=== PATIENT | male | born 1985 | race Caucasian/White ===

== ENCOUNTER 2017-10-30 08:48 | Emergency (ER) | payer BC, SELFPAY ==
[2017-10-30 09:03] VITALS: BP 136/94; PULSE 93; RESP 20; TEMP 36.8; O2SAT 99; BMI 25.1
--- NOTE | 2017-10-30 09:10 | HMH.EDUTC ---
[facility] [place]ression: Upper respiratory infection Qualifiers: URI type: unspecified URI Qualified Code(s): J06.9 - Acute upper respiratory infection, unspecified Disposition: Home, Self-Care Condition on Discharge: Good Instructions: Cough, DI for Cough -- Adult, Sore Throat, DI for Nasal Congestion Additional Instructions: * Monitor Temp. Tylenol and/or Ibuprofen as needed. ER if fever is no less than 101 despite alternating Tylenol and Ibuprofen * Encourage fluids, water, Gatorade, powerade, pedialyte if /toddler/or child * Warm salt water gargles for throat irritation *Warm fluids *Sore throat lozenges *Sleep elevated *humidifier or vaporizer Lots of rest Increase fluids, water, Gatorade, powerade *Flonase 2 sprays each nostril daily but may take 2-3 days to notice improvement with it Follow up IMMEDIATELY for new or worsening of symptoms OR no noticeable improvement over the next 48-72 hours. 911 immediately for any life threatening symptoms such as chest pain or difficulty breathing Prescriptions: Promethazine/Dextromethorphan [Promethazine-Dm Syrup] 5 ml PO Q4HP PRN #250 ml MDD 30ML/DAY PRN Reason: Cough Amoxicillin/Potassium Clav [Augmentin 875-125 Tablet] 1 tab PO Q12H #14 tab Fluticasone Propionate [Flonase 50mcg nasal spray 16gm] 2 spr NS DAILY #1 bottle Guaifenesin/Dextromethorphan [Mucinex Dm ER 1,200-60 mg Tab] 1 each PO Q12H #20 tab.er.12h Time of Disposition: 09:25 Medical Decision Making - Medical Records Medical records reviewed: Yes: I reviewed the patient's medical records. Vital Signs: 10/30/17 09:03 Temperature 98.2 F Temperature Source Temporal Artery Scan Pulse Rate [Right] 93 H Respiratory Rate 20 Blood Pressure [Right Arm] 136/94 Blood Pressure Mean [Right Arm] 108 Blood Pressure Source [Right Arm] Automatic Cuff Blood Pressure Position [Right Arm] Sitting 02 Sat by Pulse Oximetry 99 Oxygen Delivery Method Room Air - Frank Inquiry Pt receiving controlled substance: No Frank was queried for this patient: No - Reevaluation(s) Reevaluation #1: Patient denies allergy to medication [facility] [place] - General Stated complaint: drainage sore throat chest congestion Mode of Arrival: Ambulatory Source of Information: Patient Limitations: No Limitations Description of Symptoms (Recalled from Triage Doc. by RN): cough, congestion, x2 days HEENT Symptoms (Recalled from RN notes): Yes Resp Symptoms (Recalled from RN notes): No Skin Symptoms (Recalled from RN notes): No MS Symptoms (Recalled from RN notes): No Functional Status (Recalled from RN notes): N - History of Present Illness Provider Complaint: Patient state that he had sinus pain and congestion a couple of weeks ago that got better States that for the the last couple of days he has been having a sinus headache, cough, drainage and sore throat State that he has tried several over the counter medications but nothing has worked - Related Data Previous Rx's Medication Instructions Recorded Amoxicillin/Potassium Clav 1 tab PO Q12H #14 tab 10/30/17 [Augmentin 875-125 Tablet] Fluticasone Propionate [Flonase 2 spr NS DAILY #1 bottle 10/30/17 50mcg nasal spray 16gm] Guaifenesin/Dextromethorphan 1 each PO Q12H #20 tab.er.12h 10/30/17 [Mucinex Dm ER 1,200-60 mg Tab] Promethazine/Dextromethorphan 5 ml PO Q4HP PRN #250 ml MDD 10/30/17 [Promethazine-Dm Syrup] 30ML/DAY Allergies Allergy/AdvReac Type Severity Reaction Status Date / Time No Known Allergies Allergy Verified 10/30/17 09:07 - Worker's Comp Is this a Worker's Comp case?: No [facility] History I have reviewed the patient's past medical history: Yes - *Social History Smoking Status: Current every day smoker Tobacco Type: cigarettes Alcohol Intake: never - Psychiatric History Expresses thoughts of harming self/others: None Suicide Plan Description: No Plan ROS Obtained: Yes All systems reviewed & no additional complaints - EN
--- NOTE | 2017-10-30 09:13 | ED_ITS ---
[facility] [place] Disposition Clinical Impression: Upper respiratory infection Qualifiers: URI type: unspecified URI Qualified Code(s): J06.9 - Acute upper respiratory infection, unspecified Disposition: Home, Self-Care Condition on Discharge: Good Instructions: Cough, DI for Cough -- Adult, Sore Throat, DI for Nasal Congestion Additional Instructions: * Monitor Temp. Tylenol and/or Ibuprofen as needed. ER if fever is no less than 101 despite alternating Tylenol and Ibuprofen * Encourage fluids, water, Gatorade, powerade, pedialyte if /toddler/or child * Warm salt water gargles for throat irritation *Warm fluids *Sore throat lozenges *Sleep elevated *humidifier or vaporizer Lots of rest Increase fluids, water, Gatorade, powerade *Flonase 2 sprays each nostril daily but may take 2-3 days to notice improvement with it Follow up IMMEDIATELY for new or worsening of symptoms OR no noticeable improvement over the next 48-72 hours. 911 immediately for any life threatening symptoms such as chest pain or difficulty breathing Prescriptions: Promethazine/Dextromethorphan [Promethazine-Dm Syrup] 5 ml PO Q4HP PRN #250 ml MDD 30ML/DAY PRN Reason: Cough Amoxicillin/Potassium Clav [Augmentin 875-125 Tablet] 1 tab PO Q12H #14 tab Fluticasone Propionate [Flonase 50mcg nasal spray 16gm] 2 spr NS DAILY #1 bottle Guaifenesin/Dextromethorphan [Mucinex Dm ER 1,200-60 mg Tab] 1 each PO Q12H #20 tab.er.12h Time of Disposition: 09:25 Medical Decision Making - Medical Records Medical records reviewed: Yes: I reviewed the patient's medical records. Vital Signs: 10/30/17 09:03 Temperature 98.2 F Temperature Source Temporal Artery Scan Pulse Rate [Right] 93 H Respiratory Rate 20 Blood Pressure [Right Arm] 136/94 Blood Pressure Mean [Right Arm] 108 Blood Pressure Source [Right Arm] Automatic Cuff Blood Pressure Position [Right Arm] Sitting 02 Sat by Pulse Oximetry 99 Oxygen Delivery Method Room Air - Frank Inquiry Pt receiving controlled substance: No Frank was queried for this patient: No - Reevaluation(s) Reevaluation #1: Patient denies allergy to medication [facility] [place] HPI - General Stated complaint: drainage sore throat chest congestion Mode of Arrival: Ambulatory Source of Information: Patient Limitations: No Limitations Description of Symptoms (Recalled from Triage Doc. by RN): cough, congestion, x2 days HEENT Symptoms (Recalled from RN notes): Yes Resp Symptoms (Recalled from RN notes): No Skin Symptoms (Recalled from RN notes): No MS Symptoms (Recalled from RN notes): No Functional Status (Recalled from RN notes): N - History of Present Illness Provider Complaint: Patient state that he had sinus pain and congestion a couple of weeks ago that got better States that for the the last couple of days he has been having a sinus headache, cough, drainage and sore throat State that he has tried several over the counter medications but nothing has worked - Related Data Previous Rx's Medication Instructions Recorded Amoxicillin/Potassium Clav 1 tab PO Q12H #14 tab 10/30/17 [Augmentin 875-125 Tablet] Fluticasone Propionate [Flonase 2 spr NS DAILY #1 bottle 10/30/17 50mcg nasal spray 16gm] Guaifenesin/Dextromethorphan 1 each PO Q12H #20 tab.er.12h 10/30/17 [Mucinex Dm ER 1,200-60 mg Tab] Promethazine/Dextromethorphan 5 ml PO Q4HP PRN #250 ml MDD 10/30/17 [Promethazine-Dm Syrup
[2017-10-30 09:26] LABS: UTC Influenza A Antigen Negative (Negative); UTC Influenza B Antigen Negative (Negative)
[2017-10-30 09:39] VITALS: BP 132/88; PULSE 90; RESP 16; TEMP 37.1
== END 2017-10-30 09:40 | disposition home or self-care (01) ==
PROVIDERS: Emergency Provider Nurse Practitioner
DX: J06.9 Acute upper respiratory infection, unspecified (principal)
CPT/HCPCS: 87804; 96372; 99201

== ENCOUNTER 2017-11-28 14:22 | Emergency (ER) | payer BC, SELFPAY ==
[2017-11-28 14:33] VITALS: BP 141/88; PULSE 108; RESP 20; TEMP 36.6; O2SAT 98; BMI 25.1
--- NOTE | 2017-11-28 15:13 | HMH.EDUTC ---
[facility] [place]ression: URI (upper respiratory infection) Disposition: Home, Self-Care Condition on Discharge: Good Instructions: Sore Throat, DI for Cough -- Adult, DI for Nasal Congestion Additional Instructions: * Monitor Temp. Tylenol and/or Ibuprofen as needed. ER if fever is no less than 101 despite alternating Tylenol and Ibuprofen * Encourage fluids, water, Gatorade, powerade, pedialyte if infant/toddler/or child * Warm salt water gargles for throat irritation *Warm fluids *Sore throat lozenges *Sleep elevated *humidifier or vaporizer Lots of rest Increase fluids, water, Gatorade, powerade *Flonase 2 sprays each nostril daily but may take 2-3 days to notice improvement with it *Bromfed may cause drowsiness. Know how it effect you or your child. Before driving, caring for small children or sending your child to school *Your throat swab was sent to lab for culture. Those results area typically sent to your primary care physician. Be sure to follow up in 2-3 days if no improvement so they can review those results and treat if necessary If you dont have primary care I recommend you get one, but in the mean time you will have to return to a walk in clinic Follow up IMMEDIATELY for new or worsening of symptoms OR no noticeable improvement over the next 48-72 hours. 911 immediately for any life threatening symptoms such as chest pain or difficulty breathing Time of Disposition: 15:26 Medical Decision Making - Medical Records Medical records reviewed: Yes: I reviewed the patient's medical records. Vital Signs: 11/28/17 14:33 Temperature 97.9 F Temperature Source Temporal Artery Scan Pulse Rate [Right Brachial] 108 H Respiratory Rate 20 Blood Pressure [Right Arm] 141/88 Blood Pressure Mean [Right Arm] 105 Blood Pressure Source [Right Arm] Automatic Cuff Blood Pressure Position [Right Arm] Sitting 02 Sat by Pulse Oximetry 98 Oxygen Delivery Method Room Air - Lab Data Lab results reviewed: Yes: I reviewed the patient's lab results. Orders (Tests/Meds): ED MEDICATIONS Discontinued Medications Generic Name Dose Route Start Last Admin Trade Name Freq PRN Reason Stop Dose Admin Ceftriaxone Sodium 1 gm 11/28/17 15:31 Rocephin 1gm Vial IM 11/28/17 15:32 ONCE ONE Protocol Lidocaine HCl 0 ml 03/10/18 15:31 Lidocaine 1% 10ml Mdv IM 11/28/17 15:32 ONCE ONE Methylprednisolone Sodium Succinate 125 mg 11/28/17 15:31 Solu-Medrol 125mg/2ml Vial IM 11/28/17 15:32 ONCE ONE - Rfank Inquiry Pt receiving controlled substance: No Frank was queried for this patient: No [facility] [place] - General Stated complaint: Sore Throat;Cough Headache Mode of Arrival: Family Vehicle Source of Information: Patient Limitations: No Limitations Description of Symptoms (Recalled from Triage Doc. by RN): C/O HEAD CONGESTION AND COUGH X 2 DAYS WITH SOME EAR PAIN HEENT Symptoms (Recalled from RN notes): Yes (EAR PAIN) Resp Symptoms (Recalled from RN notes): Yes (COUGH AND CONGESTION) Skin Symptoms (Recalled from RN notes): No MS Symptoms (Recalled from RN notes): No Functional Status (Recalled from RN notes): N/A - History of Present Illness Provider Complaint: Patient state that he has been having cough, sinus drainage, sore throat and headache now for 2 days State that she was seen and treated for something simular to this about 2-3 weeks ago and it got better then returned the last couple of days and has continued to get worse State that he has been having cough, congesion ear pain and sinus congestion - Related Data Home Medications Medication Instructions Recorded Confirmed Cetirizine HCl [Zyrtec] 10 mg PO DAILY 11/28/17 11/28/17 Allergies Allergy/AdvReac Type Severity Reaction Status Date / Time No Known Allergies Allergy Verified 10/30/17 09:07 - Worker's Comp Is this a Worker's Comp case?: No [facility] History I have reviewed the patient's pa
--- NOTE | 2017-11-28 15:18 | ED_ITS ---
[facility] [place] Disposition Clinical Impression: URI (upper respiratory infection) Disposition: Home, Self-Care Condition on Discharge: Good Instructions: Sore Throat, DI for Cough -- Adult, DI for Nasal Congestion Additional Instructions: * Monitor Temp. Tylenol and/or Ibuprofen as needed. ER if fever is no less than 101 despite alternating Tylenol and Ibuprofen * Encourage fluids, water, Gatorade, powerade, pedialyte if infant/toddler/or child * Warm salt water gargles for throat irritation *Warm fluids *Sore throat lozenges *Sleep elevated *humidifier or vaporizer Lots of rest Increase fluids, water, Gatorade, powerade *Flonase 2 sprays each nostril daily but may take 2-3 days to notice improvement with it *Bromfed may cause drowsiness. Know how it effect you or your child. Before driving, caring for small children or sending your child to school *Your throat swab was sent to lab for culture. Those results area typically sent to your primary care physician. Be sure to follow up in 2-3 days if no improvement so they can review those results and treat if necessary If you don? t have primary care I recommend you get one, but in the mean time you will have to return to a walk in clinic Follow up IMMEDIATELY for new or worsening of symptoms OR no noticeable improvement over the next 48-72 hours. 911 immediately for any life threatening symptoms such as chest pain or difficulty breathing Time of Disposition: 15:26 Medical Decision Making - Medical Records Medical records reviewed: Yes: I reviewed the patient's medical records. Vital Signs: 11/28/17 14:33 Temperature 97.9 F Temperature Source Temporal Artery Scan Pulse Rate [Right Brachial] 108 H Respiratory Rate 20 Blood Pressure [Right Arm] 141/88 Blood Pressure Mean [Right Arm] 105 Blood Pressure Source [Right Arm] Automatic Cuff Blood Pressure Position [Right Arm] Sitting 02 Sat by Pulse Oximetry 98 Oxygen Delivery Method Room Air - Lab Data Lab results reviewed: Yes: I reviewed the patient's lab results. Orders (Tests/Meds): ED MEDICATIONS Discontinued Medications Generic Name Dose Route Start Last Admin Trade Name Freq PRN Reason Stop Dose Admin Ceftriaxone Sodium 1 gm 11/28/17 15:31 Rocephin 1gm Vial IM 11/28/17 15:32 ONCE ONE Protocol Lidocaine HCl 0 ml 11/28/17 15:31 Lidocaine 1% 10ml Mdv IM 11/28/17 15:32 ONCE ONE Methylprednisolone Sodium Succinate 125 mg 11/28/17 15:31 Solu-Medrol 125mg/2ml Vial IM 11/28/17 15:32 ONCE ONE - Frank Inquiry Pt receiving controlled substance: No Frank was queried for this patient: No [facility] [place] HPI - General Stated complaint: Sore Throat;Cough Headache Mode of Arrival: Family Vehicle Source of Information: Patient Limitations: No Limitations Description of Symptoms (Recalled from Triage Doc. by RN): C/O HEAD CONGESTION AND COUGH X 2 DAYS WITH SOME EAR PAIN HEENT Symptoms (Recalled from RN notes): Yes (EAR PAIN) Resp Symptoms (Recalled from RN notes): Yes (COUGH AND CONGESTION) Skin Symptoms (Recalled from RN notes): No MS Symptoms (Recalled from RN notes): No Functional Status (Recalled from RN notes): N/A - History of Present Illness Provider Complaint: Patient state that he has been having cough, sinus drainage , sore throat and headache now for 2 days State that she was seen and mandy
[2017-11-28 15:45] LABS: UTC Influenza A Antigen Negative (Negative); UTC Influenza B Antigen Negative (Negative)
[2017-11-28 15:58] VITALS: BP 138/82; PULSE 96; RESP 20; TEMP 36.6; O2SAT 99
== END 2017-11-28 15:59 | disposition home or self-care (01) ==
PROVIDERS: Emergency Provider Nurse Practitioner
DX: J06.9 Acute upper respiratory infection, unspecified (principal)
CPT/HCPCS: 87804; 96372; 99202

== ENCOUNTER 2020-07-13 10:24 | Emergency (ER) | payer BC, SELFPAY ==
[2020-07-13 10:58] VITALS: BP 129/85; PULSE 89; RESP 19; TEMP 36.6; O2SAT 100; BMI 25.7
[2020-07-13 11:48] VITALS: BP 129/85; PULSE 89; RESP 19; TEMP 36.6; O2SAT 100
== END 2020-07-13 11:50 | disposition home or self-care (01) ==
PROVIDERS: Emergency Provider Physician Assistant
DX: Z23 Encounter for immunization (principal)
CPT/HCPCS: 90471; 90686; G0008

== ENCOUNTER 2020-10-01 18:23 | Emergency (ER) | payer BC, SELFPAY ==
[2020-10-01 19:00] VITALS: BP 150/94; PULSE 94; RESP 16; TEMP 36.5; O2SAT 98; BMI 25.7
--- NOTE | 2020-10-01 19:45 | HMH.EDUTC ---
[place] Disposition Clinical Impression: Exposure to COVID-19 virus Disposition: Home, Self-Care Condition on Discharge: Good Instructions: Preventing the Spread of Coronavirus Discharge Instructions Additional Instructions: Drink plenty of fluids. Take tylenol for pain or fever. Follow up with your regular doctor. GO TO THE ER FOR ANY WORSENING SYMPTOMS Referrals: PCP,No [Primary Care Provider] - Time of Disposition: 19:47 Medical Decision Making - Medical Records Medical records reviewed: No: I reviewed the patient's medical records. - Frank Inquiry Pt receiving controlled substance: No Vital Signs: 10/01/20 19:00 10/01/20 19:49 Temperature 97.7 F 97.7 F Temperature Source Oral Pulse Rate 94 H Pulse Rate [Left Brachial] 94 H Respiratory Rate 16 16 Blood Pressure 150/94 H Blood Pressure [Left Arm] 150/94 H Blood Pressure Mean [Left Arm] 112 Blood Pressure Source [Left Arm] Automatic Cuff Blood Pressure Position [Left Arm] Sitting 02 Sat by Pulse Oximetry 98 Oxygen Delivery Method Room Air Orders (Tests/Meds): ORDERS Category Date Time Status Covid-19 Nasal PCR ([facility]) Routine Lab 10/01/20 19:05 Received [place] HPI - General Stated complaint: covid test Time Seen by Provider: 10/01/20 19:45 Mode of Arrival: Ambulatory Source of Information: Patient Limitations: No Limitations Description of Symptoms (Recalled from Triage Doc. by RN): COVID TEST D/T EXPOSURE. DENIES SYMPTOMS HEENT Symptoms (Recalled from RN notes): No Resp Symptoms (Recalled from RN notes): No Skin Symptoms (Recalled from RN notes): No MS Symptoms (Recalled from RN notes): No Functional Status (Recalled from RN notes): WNL - History of Present Illness Provider Complaint: He was exposed to covid-19 4 days ago. He denies any symptoms so far, but he needs a test to be sure. - Related Data Home Medications Medication Instructions Recorded Confirmed Cetirizine HCl [Zyrtec] 10 mg PO DAILY 11/28/17 10/10/18 Previous Rx's Medication Instructions Recorded Azithromycin [Zithromax 250mg 250 mg PO DIRECTED #6 tab 12/18/18 tab] Azithromycin [Z-Hieu 250mg Tab*] 250 mg PO UD DOSE PK #6 tab 09/15/19 Brompheniramine/Pseudoephed/Dm 5 ml PO Q6HP PRN #240 syrup 09/15/19 [Bromfed Dm Cough Syrup] predniSONE [Deltasone 10mg tablet] 10 mg PO BID 3 Days #6 tab 09/15/19 Allergies Allergy/AdvReac Type Severity Reaction Status Date / Time No Known Allergies Allergy Verified 12/18/18 12:18 - Worker's Comp Is this a Worker's Comp case?: No H History - Hepatitis A Screen Drug use history?: No High risk sexual behaviors?: No History of sexually transmitted infection?: No Currently employed?: No Childcare worker?: No Do you have indoor plumbing?: Yes Do you have electricity?: Yes Attestation statement:: This patient has been screened for Hepatitis A risk factors. I have reviewed the patient's past medical history: Yes Medical History: Denies:: Cancer, Diabetes Mellitus Type 1, Diabetes Mellitus Type 2, MRSA Amputation: No Fractures: No - Social History Smoking Status: Never smoker Tobacco Type: smokeless tobacco # Packs/Day (cigarettes): 1 Alcohol Intake: never Occupational Status: other Housing: house ROS Obtained: Yes All systems reviewed & no additional complaints - Constitutional Constitutional: Reports system reviewed and no additional complaints, except as docu - Eyes Eyes: Reports system reviewed and no additional complaints, except as docu - ENT Ears, Nose, Mouth, and Throat: Reports system reviewed and no additional complaints, except as docu - Cardiovascular Cardiovascular: Reports system reviewed and no additional complaints, except as docu - Respiratory Respiratory: Reports system reviewed and no additional complaints, except as docu - Gastrointestinal Gastrointestingal: Reports: system reviewed and no additional complaints, except as docu
[2020-10-01 19:49] VITALS: BP 150/94; PULSE 94; RESP 16; TEMP 36.5; O2SAT 98
== END 2020-10-01 19:54 | disposition home or self-care (01) ==
PROVIDERS: Emergency Provider Nurse Practitioner Family
DX: Z20.822 Contact with and (suspected) exposure to COVID-19 (principal)
CPT/HCPCS: 99202; G0463; U0003

== ENCOUNTER 2021-04-13 11:38 | Emergency (ER) | payer BC, SELFPAY ==
[2021-04-13 12:40] VITALS: BP 146/89; PULSE 75; RESP 18; TEMP 36.9; O2SAT 98; BMI 26.1
--- NOTE | 2021-04-13 13:06 | HMH.EDUTC ---
[facility] [place] Imp[place]: Exposure to COVID-19 virus Disposition: Home, Self-Care Condition on Discharge: Good Instructions: DI for COVID-19 (Suspected or Confirmed ), COVID-19: Protecting Yourself When You're at High Risk Additional Instructions: covid swab was sent to lab, call later today for results. self isolate until test results are known to be negative Referrals: Provider,Referral, MD [Primary Care Provider] - Time of Disposition: 13:11 Medical Decision Making - Frank Inquiry Pt receiving controlled substance: No Vital Signs: 04/13/21 12:40 Temperature 98.4 F Temperature Source Oral Pulse Rate [Apical] 75 Respiratory Rate 18 Blood Pressure [Right Arm] 146/89 H Blood Pressure Mean [Right Arm] 108 Blood Pressure Source [Right Arm] Automatic Cuff Blood Pressure Position [Right Arm] Supine 02 Sat by Pulse Oximetry 98 Oxygen Delivery Method Room Air Orders (Tests/Meds): ORDERS Category Date Time Status Covid-19 Nasal PCR ([facility]) Routine Lab 04/13/21 12:40 Received [facility] [place]PI - General Chief complaint: [facility] Stated complaint: exposure to covid Time Seen by Provider: 04/13/21 13:07 Mode of Arrival: Ambulatory Source of Information: Patient Limitations: No Limitations Description of Symptoms (Recalled from Triage Doc. by RN): covid exposure HEENT Symptoms (Recalled from RN notes): No Resp Symptoms (Recalled from RN notes): No Skin Symptoms (Recalled from RN notes): No MS Symptoms (Recalled from RN notes): No Functional Status (Recalled from RN notes): na - History of Present Illness Provider Complaint: 35 yr old male presents for covid exposer but no symptoms - Related Data Home Medications Medication Instructions Recorded Confirmed Cetirizine HCl [Zyrtec] 10 mg PO DAILY 11/28/17 10/10/18 Previous Rx's Medication Instructions Recorded Azithromycin [Zithromax 250mg 250 mg PO DIRECTED #6 tab 12/18/18 tab] Azithromycin [Z-Hieu 250mg Tab*] 250 mg PO UD DOSE PK #6 tab 09/15/19 Brompheniramine/Pseudoephed/Dm 5 ml PO Q6HP PRN #240 syrup 09/15/19 [Bromfed Dm Cough Syrup] predniSONE [Deltasone 10mg tablet] 10 mg PO BID 3 Days #6 tab 09/15/19 Allergies Allergy/AdvReac Type Severity Reaction Status Date / Time No Known Allergies Allergy Verified 12/18/18 12:18 - Worker's Comp Is this a Worker's Comp case?: No [facility] History - Hepatitis A Screen Drug use history?: No High risk sexual behaviors?: No History of sexually transmitted infection?: No Currently employed?: No Childcare worker?: No Do you have indoor plumbing?: Yes Do you have electricity?: Yes Attestation statement:: This patient has been screened for Hepatitis A risk factors. I have reviewed the patient's past medical history: Yes Medical History: Denies:: Cancer, Diabetes Mellitus Type 1, Diabetes Mellitus Type 2, MRSA Amputation: No Fractures: No - Social History Smoking Status: Never smoker Tobacco Type: smokeless tobacco # Packs/Day (cigarettes): 1 Alcohol Intake: never Occupational Status: other Housing: house ROS Obtained: Yes Systems reviewed as appropriate & no additional complaints - Constitutional Constitutional: Reports system reviewed and no additional complaints, except as docu, Denies fever(s) - Eyes Eyes: Reports system reviewed and no additional complaints, except as docu, Denies blurry vision - ENT Ears, Nose, Mouth, and Throat: Reports system reviewed and no additional complaints, except as docu, Denies bleeding gums, Denies neck pain, Denies sore throat - Cardiovascular Cardiovascular: Reports system reviewed and no additional complaints, except as docu, Denies chest pain - Respiratory Respiratory: Reports system reviewed and no additional complaints, except as docu, Denies cough - Gastrointestinal Gastrointestingal: Reports: system reviewed and no additional complaints, except as docu. Denies: nausea, vomiting - Genitourina
[2021-04-13 13:17] VITALS: BP 146/89; PULSE 75; RESP 18; TEMP 36.9; O2SAT 98
== END 2021-04-13 13:19 | disposition home or self-care (01) ==
PROVIDERS: Emergency Provider Nurse Practitioner Family
DX: Z20.822 Contact with and (suspected) exposure to COVID-19 (principal)
CPT/HCPCS: 99202; G0463; U0003

== ENCOUNTER 2021-09-15 10:59 | Emergency (ER) | payer BC, SELFPAY ==
[2021-09-15 12:43] VITALS: PULSE 112; RESP 19; TEMP 36.9; O2SAT 99; BMI 25.8
[2021-09-15 13:08] LABS: UTC Influenza A Antigen Negative (Negative); UTC Influenza B Antigen Negative (Negative)
--- NOTE | 2021-09-15 13:10 | HMH.EDUTC ---
[facility] [place] Clinical Impression: Upper respiratory infection Qualifiers: URI type: unspecified viral URI Qualified Code(s): J06.9 - Acute upper respiratory infection, unspecified Disposition: Home, Self-Care Condition on Discharge: Good Instructions: DI for Viral Upper Respiratory Infection -- Adult Additional Instructions: covid swab was sent to lab, call tomorrow for results. self isolate until test results are known to be negative No sign of a bacterial infection. Likely viral. Viruses can take 7-14 days to run their course. Nasal saline and bulb syringe or nose Tere to remove nasal drainage to help with nasal congestion. Hard to eat, drink, sleep with nasal congestion so important to keep this cleaned out. Monitor temp. Tylenol or Motrin as needed for pain or fever Encourage fluids, water, Gatorade, Powerade, Pedialyte if infant/toddler/child Warm salt water gargles Warm fluids Sore throat lozenges Sleep elevated Humidifier/vaporizer Follow-up immediately for new or worsening symptoms or no noticeable improvement over the next 48-72 hours. Referrals: Provider,Referral, [Primary Care Provider] - Time of Disposition: 13:15 Medical Decision Making - Frank Inquiry Pt receiving controlled substance: No Vital Signs: 09/15/21 12:43 Temperature 98.5 F Temperature Source Oral Pulse Rate [Right Radial] 112 H Respiratory Rate 19 02 Sat by Pulse Oximetry 99 Oxygen Delivery Method Room Air - Lab Data Lab Results 09/15/21 12:48: Influenza Type A Ag Negative, Influenza Type B Ag Negative Orders (Tests/Meds): ORDERS Category Date Time Status Covid-19 Nasal PCR ([facility]) Routine Lab 09/15/21 12:48 Ordered [facility] [place] - General Chief complaint: [facility] Stated complaint: cough, congestion Time Seen by Provider: 09/15/21 13:10 Mode of Arrival: Ambulatory Source of Information: Patient Limitations: No Limitations Description of Symptoms (Recalled from Triage Doc. by RN): Pt stated that he started with congested and coughing. This started 09/14/2021 HEENT Symptoms (Recalled from RN notes): Yes Resp Symptoms (Recalled from RN notes): No Skin Symptoms (Recalled from RN notes): No MS Symptoms (Recalled from RN notes): No Functional Status (Recalled from RN notes): n/a - History of Present Illness Provider Complaint: 35 yr old male presents for clear nasal drainage, cough, sore throat and sinus pressure that started yesterday - Related Data Home Medications Medication Instructions Recorded Confirmed Cetirizine HCl [Zyrtec] 10 mg PO DAILY 11/28/17 10/10/18 Previous Rx's Medication Instructions Recorded Azithromycin [Zithromax 250mg 250 mg PO DIRECTED #6 tab 12/18/18 tab] Azithromycin [Z-Hieu 250mg Tab*] 250 mg PO UD DOSE PK #6 tab 09/15/19 Brompheniramine/Pseudoephed/Dm 5 ml PO Q6HP PRN #240 syrup 09/15/19 [Bromfed Dm Cough Syrup] predniSONE [Deltasone 10mg tablet] 10 mg PO BID 3 Days #6 tab 09/15/19 Allergies Allergy/AdvReac Type Severity Reaction Status Date / Time No Known Allergies Allergy Verified 09/15/21 12:48 - Worker's Comp Is this a Worker's Comp case?: No [facility] History - Hepatitis A Screen Drug use history?: No High risk sexual behaviors?: No History of sexually transmitted infection?: No Currently employed?: No Childcare worker?: No Do you have indoor plumbing?: Yes Do you have electricity?: Yes Attestation statement:: This patient has been screened for Hepatitis A risk factors. I have reviewed the patient's past medical history: Yes Medical History: Denies:: Cancer, Diabetes Mellitus Type 1, Diabetes Mellitus Type 2, MRSA Amputation: No Fractures: No - Social History Smoking Status: Never smoker Tobacco Type: smokeless tobacco # Packs/Day (cigarettes): 1 Alcohol Intake: never Occupational Status: other Housing: house ROS Obtained: Yes Systems reviewed as appropriate & no additional complaints - [employer]
[2021-09-15 13:20] VITALS: BP 0/0; PULSE 112; RESP 19; TEMP 36.9; O2SAT 99
== END 2021-09-15 13:25 | disposition home or self-care (01) ==
PROVIDERS: Emergency Provider Nurse Practitioner Family
DX: J06.9 Acute upper respiratory infection, unspecified (principal); Z20.822 Contact with and (suspected) exposure to COVID-19
CPT/HCPCS: 87804; 99202; C9803; G0463; U0003; U0005

== ENCOUNTER 2021-09-17 17:06 | Emergency (ER) | payer BC, SELFPAY ==
[2021-09-17 18:52] VITALS: BP 139/97; PULSE 101; RESP 16; TEMP 37.1; O2SAT 100; BMI 25.1
--- NOTE | 2021-09-17 19:14 | HMH.EDUTC ---
[facility] [place] Clinical Impression: Bronchitis Sinusitis Qualifiers: Sinusitis location: unspecified location Chronicity: acute Recurrence: non-recurrent Qualified Code(s): J01.90 - Acute sinusitis, unspecified Disposition: Home, Self-Care Condition on Discharge: Good Instructions: DI for Sinusitis Additional Instructions: Drink plenty of fluids. Take tylenol or ibuprofen for pain or fever. Continue to take the medications you are on. Don't take anymore oral steroids (medrol dose pack) today, but resume them tomorrow as directed on the pack. Follow up with your regular doctor. GO TO THE ER FOR ANY WORSENING SYMPTOMS Referrals: Provider,Referral, MD [Primary Care Provider] - Time of Disposition: 20:01 Medical Decision Making - Medical Records Medical records reviewed: No: I reviewed the patient's medical records. - Frank Inquiry Pt receiving controlled substance: No Vital Signs: 09/17/21 18:52 Temperature 98.7 F Temperature Source Oral Pulse Rate [Left] 101 H Respiratory Rate 16 Blood Pressure [Right Arm] 139/97 H Blood Pressure Mean [Right Arm] 111 02 Sat by Pulse Oximetry 100 Orders (Tests/Meds): ED MEDICATIONS Discontinued Medications Generic Name Dose Route Start Last Admin Trade Name Freq PRN Reason Stop Dose Admin Ceftriaxone Sodium 1 gm 09/17/21 19:33 09/17/21 19:40 Ceftriaxone 1gm Vial IM 09/17/21 19:34 1 gm ONCE ONE Administration Lidocaine HCl 0 ml 09/17/21 19:33 09/17/21 19:40 Lidocaine 1% 5ml Pf Vial IM 09/17/21 19:34 2 ml ONCE ONE Administration Methylprednisolone Sodium Succinate 125 mg 09/17/21 19:33 09/17/21 19:40 Methylprednisolone Sod Succ 125mg Vial IM 09/17/21 19:34 125 mg ONCE ONE Administration [facility] [place] - General Stated complaint: congestion, cough runny nose Time Seen by Provider: 09/17/21 19:14 Mode of Arrival: Ambulatory Source of Information: Patient Limitations: No Limitations Description of Symptoms (Recalled from Triage Doc. by RN): pt c/o cough and congestion. HEENT Symptoms (Recalled from RN notes): Yes Resp Symptoms (Recalled from RN notes): Yes Skin Symptoms (Recalled from RN notes): No MS Symptoms (Recalled from RN notes): No Functional Status (Recalled from RN notes): wnl - History of Present Illness Provider Complaint: He states that for the past 4 days he has had a sinus congestion, sore throat and a cough. His cough is nonproductive. He was here 3 days ago and diagnosed with a viral illness. He states that he is not getting better with medications. He request a steroid shot. - Related Data Home Medications Medication Instructions Recorded Confirmed Cetirizine HCl [Zyrtec] 10 mg PO DAILY 11/28/17 10/10/18 Previous Rx's Medication Instructions Recorded Azithromycin [Zithromax 250mg 250 mg PO DIRECTED #6 tab 12/18/18 tab] Azithromycin [Z-Hieu 250mg Tab*] 250 mg PO UD DOSE PK #6 tab 09/15/19 Brompheniramine/Pseudoephed/Dm 5 ml PO Q6HP PRN #240 syrup 09/15/19 [Bromfed Dm Cough Syrup] predniSONE [Deltasone 10mg tablet] 10 mg PO BID 3 Days #6 tab 09/15/19 Azithromycin [Z-Heiu 250mg Tab*] 250 mg PO UD DOSE PK #6 tab 09/17/21 Promethazine/Dextromethorphan 5 ml PO Q6HP PRN #240 ml 09/17/21 [Promethazine-Dm Syrup] guaiFENesin [Mucinex 600mg tablet] 1 - 2 tab PO BIDP PRN #30 tab 09/17/21 methylPREDNISolone [Medrol] 4 mg PO DIRECTED 6 Days #21 09/17/21 packet Allergies Allergy/AdvReac Type Severity Reaction Status Date / Time No Known Allergies Allergy Verified 09/15/21 12:48 - Worker's Comp Is this a Worker's Comp case?: No [facility] History - Hepatitis A Screen Drug use history?: No High risk sexual behaviors?: No History of sexually transmitted infection?: No Currently employed?: No Childcare worker?: No Do you have indoor plumbing?: Yes Do you have electricity?: Yes Attestation statement:: This patient has been screened for Hepatitis A risk factors
[2021-09-17 20:16] VITALS: BP 139/97; PULSE 101; RESP 16; TEMP 37.1
== END 2021-09-17 20:17 | disposition home or self-care (01) ==
PROVIDERS: Emergency Provider Nurse Practitioner Family
DX: J20.9 Acute bronchitis, unspecified (principal); J01.90 Acute sinusitis, unspecified
CPT/HCPCS: 96372; 99202; G0463

== ENCOUNTER → 2021-10-30 10:54 | Outpatient (CLI) | payer BC, SELFPAY ==
[2021-10-31 09:44] LABS: Covid-19 Nasal PCR Sendout Lex POSITIVE
== END ==
PROVIDERS: Visit Provider Nurse Practitioner
DX: U07.1 COVID-19 (principal)
CPT/HCPCS: C9803; U0004; U0005

== ENCOUNTER 2022-03-13 12:25 | Emergency (ER) | payer BC, SELFPAY ==
[2022-03-13 12:31] VITALS: BP 127/77; PULSE 81; RESP 17; TEMP 36.7; O2SAT 97; BMI 24.4
--- NOTE | 2022-03-13 12:39 | HMH.EDUTC ---
[facility] – [place] Dis[place] Clinical Impression: Otitis media Qualifiers: Otitis media type: suppurative Chronicity: acute Laterality: bilateral Recurrence: non-recurrent Spontaneous tympanic membrane rupture: without spontaneous rupture Qualified Code(s): H66.003 - Acute suppurative otitis media without spontaneous rupture of ear drum, bilateral Disposition: Home, Self-Care Condition on Discharge: Good Instructions: Middle Ear Infection Additional Instructions: Drink plenty of fluids. Take tylenol or ibuprofen for pain or fever. Take the medications as directed. Follow up with your regular doctor. GO TO THE ER FOR ANY WORSENING SYMPTOMS Prescriptions: Brompheniramine/Pseudoephed/Dm [Bromfed Dm Cough Syrup] 5 ml PO Q6HP PRN #240 ml PRN Reason: Cough Transmission Status: Received by [facility] Amoxicillin [Amoxicillin 875MG Tab] 875 mg PO Q12H #20 tab Transmission Status: Received by [facility] methylPREDNISolone [Medrol] 4 mg PO DIRECTED 6 Days #21 packet Transmission Status: Received by [facility] Referrals: Provider,Referral, [Primary Care Provider] - Time of Disposition: 13:09 Medical Decision Making - Medical Records Medical records reviewed: No: I reviewed the patient's medical records. - Frank Inquiry Pt receiving controlled substance: No Vital Signs: 03/13/22 12:31 03/13/22 13:11 Temperature 98.0 F 98.0 F Temperature Source Oral Pulse Rate 81 Pulse Rate [Right Radial] 81 Respiratory Rate 17 17 Blood Pressure 127/77 Blood Pressure [Right Arm] 127/77 Blood Pressure Mean [Right Arm] 93 02 Sat by Pulse Oximetry 97 [facility] [place] HPI - General Stated complaint: ear ache Time Seen by Provider: 03/13/22 12:35 Description of Symptoms (Recalled from Triage Doc. by RN): patient comes in today with complaints of left ear pain. symptoms began 2 days ago HEENT Symptoms (Recalled from RN notes): Yes Resp Symptoms (Recalled from RN notes): No Skin Symptoms (Recalled from RN notes): No MS Symptoms (Recalled from RN notes): No Functional Status (Recalled from RN notes): wnl - History of Present Illness Provider Complaint: He c/o left ear pain for the past 2 days. - Related Data Home Medications Medication Instructions Recorded Confirmed Cetirizine HCl [Zyrtec] 10 mg PO DAILY 11/28/17 10/10/18 Previous Rx's Medication Instructions Recorded Azithromycin [Zithromax 250mg 250 mg PO DIRECTED #6 tab 12/18/18 tab] Azithromycin [Z-Hieu 250mg Tab*] 250 mg PO UD DOSE PK #6 tab 09/15/19 Brompheniramine/Pseudoephed/Dm 5 ml PO Q6HP PRN #240 syrup 09/15/19 [Bromfed Dm Cough Syrup] predniSONE [Deltasone 10mg tablet] 10 mg PO BID 3 Days #6 tab 09/15/19 Azithromycin [Z-Hieu 250mg Tab*] 250 mg PO UD DOSE PK #6 tab 09/17/21 Promethazine/Dextromethorphan 5 ml PO Q6HP PRN #240 ml 09/17/21 [Promethazine-Dm Syrup] guaiFENesin [Mucinex 600mg tablet] 1 - 2 tab PO BIDP PRN #30 tab 09/17/21 methylPREDNISolone [Medrol] 4 mg PO DIRECTED 6 Days #21 09/17/21 packet Amoxicillin [Amoxicillin 875MG 875 mg PO Q12H #20 tab 03/13/22 Tab] Brompheniramine/Pseudoephed/Dm 5 ml PO Q6HP PRN #240 ml 03/13/22 [Bromfed Dm Cough Syrup] methylPREDNISolone [Medrol] 4 mg PO DIRECTED 6 Days #21 03/13/22 packet Allergies Allergy/AdvReac Type Severity Reaction Status Date / Time No Known Allergies Allergy Verified 03/13/22 12:36 - Worker's Comp Is this a Worker's Comp case?: No [facility] History - Hepatitis A Screen Attestation statement:: This patient has been screened for Hepatitis A risk factors. I have reviewed the patient's past medical history: Yes Medical History: Denies:: Cancer, Diabetes Mellitus Type 1, Diabetes Mellitus Type 2, MRSA Amputation: No Fractures: No - Social History Smoking Status: Never smoker Tobacco Type: smokeless tobacco # Packs/Day (cigarettes): 1 Alcohol Intake: never Occupational Status: other Housing: house ROS Ob
[2022-03-13 13:11] VITALS: BP 127/77; PULSE 81; RESP 17; TEMP 36.7
== END 2022-03-13 13:12 | disposition home or self-care (01) ==
LOC: ER 12:26 → UTC 12:30
PROVIDERS: Emergency Provider Nurse Practitioner Family
DX: H66.003 Acute suppurative otitis media without spontaneous rupture of ear drum, bilateral (principal)
CPT/HCPCS: 99212; G0463

== ENCOUNTER 2022-09-18 17:51 | Emergency (ER) | payer BC, SELFPAY ==
[2022-09-18 18:40] VITALS: BP 138/89; PULSE 79; RESP 18; TEMP 36.9; O2SAT 99; BMI 25.1
--- NOTE | 2022-09-18 19:05 | EXP.UTC ---
Discharge Plan Disposition Patient Disposition: Home, Self-Care Condition: Good Prescriptions Prescriptions: New methylprednisolone [Medrol (Hieu)] 4 mg tablets,dose pack See Rx Instructions .Route .COMPLEX 6 Days Qty: 21 0RF Rx Instructions: taper pack; amoxicillin-pot clavulanate 875-125 mg Tablet 1 tab PO Q12H Qty: 20 0RF No Action lisinopril 10 mg tablet 10 mg PO DAILY Zyrtec 10 MG capsule 10 mg PO DAILY Referrals Follow up/Referrals: Provider,Referral, MD [Primary Care Provider] - See instructions Activity Restrictions/Add. Instructions Additional Instructions/Restrictions: *Monitor Temp, Over the counter Motrin or Tylenol as directed/as needed Tylenol every 4 hours and Motrin every 6 hours (as long as your family doctor has told you that you can take it) for fever or pain. and straight to ER if unable to lower temp less than 101.0 after medication given *Warm salt water gargles may help to soothe the throat *Throat Lozenges? *Warm fluids like tea with honey may help to soothe the throat? *Sleep elevated *Humidifier/Vaporizer Start Augmentin and Medrol dose pack tomorrow Follow up IMMEDIATELY for new or worsening symptoms or no Noticeable improvement over the next 48-72 hours. 911 for difficulty breathing or swallowing Clinical Impressions Clinical Impression: Sinusitis Qualifiers: Sinusitis location: unspecified location Chronicity: unspecified Qualified Code(s): J32.9 - Chronic sinusitis, unspecified Instructions Patient Instructions: Sinusitis, DI for Sinusitis Discharge ED Provider: Mikala Cronin [facility] General Stated complaint: sore throat, congetsion, cough Mode of Arrival: Ambulatory Source of Information: Patient Limitations: No Limitations Time Seen by Provider: 09/18/22 19:05 Description of Symptoms (Recalled from Triage Doc. by RN): PATIENT C/O SINUS PRESSURE, COUGH AND CONGESTION X 4 DAYS HEENT Symptoms (Recalled from RN notes): Yes Resp Symptoms (Recalled from RN notes): Yes Skin Symptoms (Recalled from RN notes): No MS Symptoms (Recalled from RN notes): No Functional Status (Recalled from RN notes): WNL History of Present Illness Provider Complaint: Patient states that he has been having sinus pain and pressure with drainage in the back of his throat and cough for about 4 days States that tonight the pressure was getting worse behind his eyes and was talking hoarse so he came in before it got too bad Related Data Home Medications Medication Instructions Recorded Confirmed cetirizine 10 mg capsule (Zyrtec) 10 mg PO DAILY Allergy symptoms 11/28/17 09/18/22 lisinopril 10 mg tablet 10 mg PO DAILY Hypertension 09/18/22 09/18/22 Previous Rx's Medication Instructions Recorded amoxicillin 875 mg-potassium 1 tab PO Q12H #20 tabs 09/18/22 clavulanate 125 mg tablet methylprednisolone 4 mg tablets in See Rx Instructions .Route 09/18/22 a dose pack (Medrol (Hieu)) .COMPLEX 6 days #21 tabs Allergies Allergy/AdvReac Type Severity Reaction Status Date / Time No Known Allergies Allergy Verified 03/13/22 12:36 Worker's Comp Is this a Worker's Comp case?: No [facility] Disclaimer: The information contained in this section may have been updated after the patient was seen, as this information can be updated by other users. Medical History (Updated 09/18/22 @ 19:09 by Mikala Cronin APRN) Hypertension Social History (Updated 09/18/22 @ 19:04 by Oxana Sloan RN) Smoking Status: Never smoker alcohol intake: never current occupational status: other Travel in the last 8 weeks: None housing: house ROS Obtained: Yes All systems reviewed & no additional complaints except as documented and Yes Systems reviewed as appropriate & no additional complaints except as documented Constitutional Constitutional: Reports system reviewed and no additional complaints, except as documented and Reports as per HPI E
[2022-09-18 19:21] VITALS: BP 138/89; PULSE 79; RESP 18; TEMP 36.9; O2SAT 99
== END 2022-09-18 19:42 | disposition home or self-care (01) ==
PROVIDERS: Emergency Provider Nurse Practitioner
DX: J32.9 Chronic sinusitis, unspecified (principal)
CPT/HCPCS: 96372; 99212; G0463; J0696

== ENCOUNTER 2023-03-28 11:13 | Emergency (ER) | payer BC, SELFPAY ==
[2023-03-28 11:20] VITALS: BP 136/86; PULSE 85; RESP 18; TEMP 37.1; O2SAT 99; BMI 25.5
--- NOTE | 2023-03-28 11:55 | EXP.UTC ---
Discharge Plan Disposition Patient Disposition: Home, Self-Care Condition: Good Prescriptions Prescriptions: New triamcinolone acetonide 0.025 % cream 1 applic topical BID Qty: 15 0RF No Action lisinopril 10 mg tablet 10 mg PO DAILY Zyrtec 10 MG capsule 10 mg PO DAILY Referrals Follow up/Referrals: Provider,Referral, MD [Primary Care Provider] - See instructions Clinical Impressions Clinical Impression: Poison nick Instructions Patient Instructions: DI for Poison Nick Allergy [facility]charge [facility] [place] General Stated complaint: Possible poison nick rash Mode of Arrival: Ambulatory Source of Information: Patient Limitations: No Limitations Time Seen by Provider: 03/28/23 11:55 Description of Symptoms (Recalled from Triage Doc. by RN): PATIENT C/O POISON NICK ALL OVER X 1 WEEK HEENT Symptoms (Recalled from RN notes): No Resp Symptoms (Recalled from RN notes): No Skin Symptoms (Recalled from RN notes): Yes MS Symptoms (Recalled from RN notes): No Functional Status (Recalled from RN notes): WNL History of Present Illness Provider Complaint: 37 yr male presents for poison nick scattered though out and spreading Related Data Home Medications Medication Instructions Recorded Confirmed cetirizine 10 mg capsule (Zyrtec) 10 mg PO DAILY Allergy symptoms 11/28/17 03/28/23 lisinopril 10 mg tablet 10 mg PO DAILY Hypertension 09/18/22 03/28/23 Previous Rx's Medication Instructions Recorded triamcinolone acetonide 0.025 % 1 applic topical BID #15 grams 03/28/23 topical cream Allergies Allergy/AdvReac Type Severity Reaction Status Date / Time No Known Allergies Allergy Verified 03/13/22 12:36 Worker's Comp Is this a Worker's Comp case?: No [facility] Disclaimer: The information contained in this section may have been updated after the patient was seen, as this information can be updated by other users. Medical History , [employer]) Hypertension Surgical History , [employer]) H/O vasectomy History of knee surgery Social History , [employer]) Smoking Status: Never smoker alcohol intake: never current occupational status: other Travel in the last 8 weeks: None housing: house ROS Obtained: Yes All systems reviewed & no additional complaints except as documented Constitutional Constitutional: Reports system reviewed and no additional complaints, except as documented Eyes Eyes: Reports system reviewed and no additional complaints, except as documented ENT Ears, Nose, Mouth, and Throat: Reports system reviewed and no additional complaints, except as documented Cardiovascular Cardiovascular: Reports system reviewed and no additional complaints, except as documented Gastrointestinal Gastrointestingal: Reports system reviewed and no additional complaints, except as documented Musculoskeletal Musculoskeletal: Reports system reviewed and no additional complaints, except as documented Integumentary/Breasts Skin/Breast: Reports system reviewed and no additional complaints, except as documented, Reports as per HPI, Reports pruritus and Reports rash Neurologic Neurologic: Reports system reviewed and no additional complaints, except as documented Allergic/Immunologic Allergic/Immunologic: Reports system reviewed and no additional complaints, except as documented Physical Exam General General appearance: alert and in no apparent distress Head Head exam: atraumatic, normocephalic and normal inspection Eye Eye exam: Present normal appearance and PERRL ENT ENT exam: Present normal exam, normal oropharynx, mucous membranes moist, TM's normal bilaterally and normal external ear exam Neck Neck exam: Present normal inspection, full ROM and trachea midline; Absent meningismus or lymphadenopathy Respiratory Respira
[2023-03-28 12:14] VITALS: BP 136/86; PULSE 85; RESP 18; TEMP 37.1; O2SAT 99
== END 2023-03-28 12:17 | disposition home or self-care (01) ==
PROVIDERS: Emergency Provider Nurse Practitioner Family
DX: L23.7 Allergic contact dermatitis due to plants, except food (principal); I10 Essential (primary) hypertension; W60.XXXA Contact with nonvenomous plant thorns and spines and sharp leaves, initial encounter
CPT/HCPCS: 96372; 99212; 99214; G0463

== ENCOUNTER 2023-08-20 12:50 | Emergency (ER) | payer BC, SELFPAY ==
[2023-08-20 12:50] VITALS: BP 139/93; PULSE 117; RESP 20; TEMP 36.9; O2SAT 98; BMI 25.8
--- NOTE | 2023-08-20 13:18 | EXP.UTC ---
Discharge Plan Disposition Patient Disposition: Home, Self-Care Condition: Good Prescriptions Prescriptions: New promethazine-DM 6.25-15 mg/5 mL syrup 5 ml PO Q6H PRN (Reason: cough) Qty: 118 0RF methylprednisolone [Medrol (Hieu)] 4 mg tablets,dose pack See Rx Instructions .Route .COMPLEX 6 Days Qty: 21 0RF Rx Instructions: taper pack; amoxicillin-pot clavulanate 875-125 mg Tablet 1 tab PO Q12H Qty: 20 0RF No Action lisinopril 10 mg tablet 10 mg PO DAILY Zyrtec 10 MG capsule 10 mg PO DAILY Referrals Follow up/Referrals: Provider,Referral, MD [Primary Care Provider] - See instructions Activity Restrictions/Add. Instructions Additional Instructions/Restrictions: *Monitor Temp, Over the counter Motrin or Tylenol as directed/as needed Tylenol every 4 hours and Motrin every 6 hours (as long as your family doctor has told you that you can take it) for fever or pain. and straight to ER if unable to lower temp less than 101.0 after medication given *Warm salt water gargles may help to soothe the throat *Throat Lozenges? *Warm fluids like tea with honey may help to soothe the throat? *Sleep elevated *Humidifier/Vaporizer Follow up IMMEDIATELY for new or worsening symptoms or no Noticeable improvement over the next 48-72 hours. 911 for difficulty breathing or swallowing Clinical Impressions Clinical Impression: Sinusitis Qualifiers: Sinusitis location: unspecified location Chronicity: unspecified Qualified Code(s): J32.9 - Chronic sinusitis, unspecified Instructions Patient Instructions: DI for Sinusitis, Sinusitis Discharge ED Provider: Mikala Cronin [facility] General Stated complaint: possible sinus infection Mode of Arrival: Ambulatory Source of Information: Patient Limitations: No Limitations Time Seen by Provider: 08/20/23 13:18 Description of Symptoms (Recalled from Triage Doc. by RN): PATIENT C/O SINUS CONGESTION/DRAINAGE AND COUGH X 2 DAYS HEENT Symptoms (Recalled from RN notes): Yes Resp Symptoms (Recalled from RN notes): No Skin Symptoms (Recalled from RN notes): No MS Symptoms (Recalled from RN notes): No Functional Status (Recalled from RN notes): WNL History of Present Illness Provider Complaint: Patient states that he has been having sinus congestion for several days but over the last couple of days pain and pressure has got worse and he can feel it draining in the back of his throat causing him to have a cough so today when he wasnt feeling any better he came in Related Data Home Medications Medication Instructions Recorded Confirmed cetirizine 10 mg capsule (Zyrtec) 10 mg PO DAILY Allergy symptoms 11/28/17 08/20/23 lisinopril 10 mg tablet 10 mg PO DAILY Hypertension 09/18/22 08/20/23 Previous Rx's Medication Instructions Recorded amoxicillin 875 mg-potassium 1 tab PO Q12H #20 tabs 08/20/23 clavulanate 125 mg tablet methylprednisolone 4 mg tablets in See Rx Instructions .Route 08/20/23 a dose pack (Medrol (Hieu)) .COMPLEX 6 days #21 tabs promethazine-DM 6.25 mg-15 mg/5 mL 5 ml PO Q6H PRN cough #118 mL 08/20/23 oral syrup Allergies Allergy/AdvReac Type Severity Reaction Status Date / Time No Known Allergies Allergy Verified 03/13/22 12:36 Worker's Comp Is this a Worker's Comp case?: No [facility] Disclaimer: The information contained in this section may have been updated after the patient was seen, as this information can be updated by other users. Medical History , PROCEDURES RN) Hypertension Surgical History , PROCEDURES RN) H/O vasectomy History of knee surgery Social History , PROCEDURES RN) Smoking Status: Never smoker alcohol intake: never current occupational status: other Travel in the last 8 weeks: None housing: house ROS Obtained:
[2023-08-20 13:26] VITALS: BP 139/93; PULSE 117; RESP 20; TEMP 36.9; O2SAT 98
== END 2023-08-20 13:36 | disposition home or self-care (01) ==
PROVIDERS: Emergency Provider Nurse Practitioner
DX: J01.90 Acute sinusitis, unspecified (principal); R05.9 Cough, unspecified; R09.81 Nasal congestion; R09.82 Postnasal drip; I10 Essential (primary) hypertension
CPT/HCPCS: 99212; 99214; G0463

== ENCOUNTER 2023-09-24 22:40 | Outpatient (CLI) | payer BC, SELFPAY ==
[2023-09-24 15:44] LABS: Basophils # 0.1 K/mm3 (0-0.2); Basophils % 1.3 % (0.1-2.0); Eosinophils # 0.2 K/mm3 (0.0-0.4); Eosinophils % 3.6 % (0.1-12.0); Hematocrit 42.8 % (42.0-52.0); Hemoglobin 14.2 g/dL (14.1-18.0); Lymphocytes # 2.5 K/mm3 (0.7-4.5); Lymphocytes % 40.9 % (10-50); Mean Corpuscular HGB Conc 33.2 g/dL (31.8-35.4); Mean Corpuscular Hemoglobin 31.2 pg (27.0-31.2); Mean Corpuscular Volume 94.1 fl (80-94); Mean Platelet Volume 8.9 fl (7.4-10.4); Monocytes # 0.4 K/mm3 (0.1-1.0); Monocytes % 7.2 % (1.7-9.3); Neutrophils # 2.9 K/mm3 (1.8-7.8); Platelet Count 470 K/mm3 (142-424); Red Blood Count 4.55 M/mm3 (4.60-6.20); Red Cell Distribution Width 13.5 % (11.5-17.5); White Blood Count 6.2 K/mm3 (4.8-10.8)
[2023-09-24 15:53] LABS: Alanine Aminotransferase 76 U/L (12-78); Albumin Level 4.6 g/dl (3.5-5.0); Albumin/Globulin Ratio 1.8 (1.1-1.8); Alkaline Phosphatase 78 U/L (38-126); Aspartate Amino Transferase 58 U/L (17-59); Bilirubin,Total 0.6 mg/dl (0.2-1.3); Blood Urea Nitrogen 10 mg/dl (9-20); Calcium 9.4 mg/dl (8.4-10.2); Carbon Dioxide 30 mmol/L (22.0-30.0); Chloride 100 mmol/L (98-107); Chol/HDL Ratio 5.7 (1-3.5); Cholesterol 198 mg/dl (140-200); Estimated Glomerular Filt Rate 109 ml/min (>60); GFR (African American) 132 ML/MIN (>60); Globulin 2.5 g/dL (1.3-3.2); Glucose 79 mg/dl (74-100); HDL Cholesterol 35 mg/dl (40-60); Sodium 137 mmol/L (136-145); Total Protein,Serum 7.1 g/dl (6.3-8.2); Triglycerides 230 mg/dl (30-150); VLDL Cholesterol 46 mg/dL (0-40)
[2023-09-24 16:04] LABS: Direct LDL Cholesterol 112.93 mg/dL (100-129)
[2023-09-24 16:09] LABS: 25-OH Vitamin D, Total 46.5 ng/mL (30-100)
[2023-09-24 16:24] LABS: Thyroid Stimulating Hormone 0.84 uIU/mL (0.465-4.68)
[2023-09-24 17:44] LABS: Hemoglobin A1C 5.3 % (4.0-6.0)
== END 2023-09-24 23:59 ==
LOC: LAB.DROPOF 22:40
PROVIDERS: PCP Internal Medicine; Visit Provider Internal Medicine
DX: Z00.00 Encounter for general adult medical examination without abnormal findings (principal); Z13.220 Encounter for screening for lipoid disorders; Z13.1 Encounter for screening for diabetes mellitus; Z13.21 Encounter for screening for nutritional disorder; Z13.29 Encounter for screening for other suspected endocrine disorder; I10 Essential (primary) hypertension; Z79.899 Other long term (current) drug therapy
CPT/HCPCS: 80053; 80061; 82306; 83036; 84439; 84443; 85025

== ENCOUNTER 2024-10-23 08:09 | Emergency (ER) | payer BC, SELFPAY ==
[2024-10-23 08:20] VITALS: BP 131/76; PULSE 71; RESP 19; TEMP 36.7; O2SAT 98; BMI 27.3
--- NOTE | 2024-10-23 08:38 | ED_ITS ---
Discharge Plan Disposition Patient Disposition: Home, Self-Care Condition: Good Prescriptions Prescriptions: New amoxicillin-pot clavulanate 875-125 mg Tablet 1 tab PO Q12H 7 Days Qty: 14 0RF fluticasone propionate [Flonase Allergy Relief] 50 mcg/actuation spray,suspension 2 spray intranasal DAILY Qty: 16 0RF Rx Instructions: administer into each nostril daily methylprednisolone [Medrol (Hieu)] 4 mg tablets,dose pack See Rx Instructions .Route .COMPLEX 6 Days Qty: 21 0RF Rx Instructions: taper pack; No Action oseltamivir 75 mg capsule 75 mg PO DAILY Qty: 14 0RF lisinopril 10 mg tablet 10 mg PO DAILY Qty: 90 2RF Zyrtec 10 MG capsule 10 mg PO DAILY Referrals Follow up/Referrals: David Gutiérrez DO [Primary Care Provider] - See instructions Activity Restrictions/Add. Instructions Additional Instructions/Restrictions: *Monitor Temp, Over the counter Motrin or Tylenol as directed/as needed Tylenol every 4 hours and Motrin every 6 hours (as long as your family doctor has told you that you can take it) for fever or pain. and straight to ER if unable to lower temp less than 101.0 after medication given *Warm salt water gargles may help to soothe the throat *Throat Lozenges? *Warm fluids like tea with honey may help to soothe the throat? *Sleep elevated *Humidifier/Vaporizer *Flonase 2 sprays in each nostril daily but be aware that it may take 2-3 days before you notice improvement Follow up IMMEDIATELY for new or worsening symptoms or no Noticeable improvement over the next 48-72 hours. 911 for difficulty breathing or swallowing Clinical Impressions Clinical Impression: Sinusitis Qualifiers: Sinusitis location: unspecified location Chronicity: unspecified Qualified Code(s): J32.9 - Chronic sinusitis, unspecified Instructions Patient Instructions: DI for Sinusitis, Middle Ear Infection Print Language Print Language: [place] Discharge ED Provider: Mikala Cronin [facility] General Stated complaint: ear pain, sinus congestion Mode of Arrival: Ambulatory Source of Information: Patient Limitations: No Limitations Time Seen by Provider: 10/23/24 08:38 Description of Symptoms (Recalled from Triage Doc. by RN): PATIENT C/O EAR PAIN, HEADACHE, AND SINUS PRESSURE X 2 DAYS HEENT Symptoms (Recalled from RN notes): Yes Resp Symptoms (Recalled from RN notes): No Skin Symptoms (Recalled from RN notes): No MS Symptoms (Recalled from RN notes): No Functional Status (Recalled from RN notes): WNL History of Present Illness Provider Complaint: Patient states that he has been having sinus pain and pressure for several day worse in the last couple of days States that he has also had pain in his left ear on and off States today he was still having pain in his left ear and sinus pain and pressure so he came in to get checked Related Data Home Medications ?Medication ?Instructions ?Recorded ?Confirmed cetirizine 10 mg capsule (Zyrtec) 10 mg PO DAILY Allergy symptoms 11/28/17 09/24/23 Previous Rx's ?Medication ?Instructions ?Recorded oseltamivir 75 mg capsule 75 mg PO DAILY #14 caps 10/02/23 lisinopril 10 mg tablet 10 mg PO DAILY Hypertension #90 01/19/24 tabs amoxicillin 875 mg-potassium 1 tab PO Q12H 7 days #14 tabs 10/23/24 clavulanate 125 mg tablet fluticasone propionate 50 2 spray intranasal DAILY #16 grams 10/23/24 mcg/actuation nasal spray,suspension (Flonase Allergy Relief) methylprednisolone 4 mg tablets in See Rx Instructions .Route 10/23/24 a dose pack (Medrol (Hieu)) .COMPLEX 6 days #21 tabs Allergies Allergy/AdvReac Type Severity Reaction Status Date / Time No Known Allergies Allergy Verified 09/24/23 09:35 Worker's Comp Is this a Worker's Comp case?: No PFSH [facility], [facility] Disclaimer: The information contained in this section may have been updated after the patient was seen, as this information can be updated by other users. Medical History (Updated 10/23/24 @ 08:43 by Mikala Cronin APRN) Hypertension Surgical History , WANDA) History of knee surgery H/O vasectomy Family History (Updated 09/24/23 @ 09:36 by Lalitha Wyman LPN) Father Heart attack Hypertension Coronary artery disease Social History (Updated 09/24/23 @ 09:37 by Lalitha Wyman LPN) Smoking Status: Never smoker alcohol intake: current alcohol intake frequency: holidays/special occasions only substance use type: denies use current occupational status: employed and other Travel in the last 8 weeks: None housing: house Have you lived/traveled outside [place] in past 30 days?: No Contact w/someone who lives/traveled outside [place] past 30 days?: No Exposure to someone with infectious disease in past 14 days?: No Do you have a fever (greater than 100.4 F or 38 C)?: No Have you tested positive for COVID-19: No Exposed to someone with COVID-19 in past 14 days?: No Do you have a sore throat?: No Do you have a cough?: No Do you have any weakness?: No Do you have any diarrhea?: No Are you experiencing any unusual bleeding?: No Do you have any muscle aches/pain?: No Do you have any abdominal pain?: No Are you experiencing loss of taste or smell?: No ROS Obtained: Yes All systems reviewed & no additional complaints except as documented and Yes Systems reviewed as appropriate & no additional complaints except as documented Constitutional Constitutional: Reports system reviewed and no additional complaints, except as documented, Reports as per HPI and Reports headache(s) ENT Ears, Nose, Mouth, and Throat: Reports system reviewed and no additional complaints, except as documented, Reports as per HPI, Reports otalgia, Reports headache(s), Reports sinus pain and Reports sinus pressure Cardiovascular Cardiovascular: Reports system reviewed and no additional complaints, except as documented and Reports as per HPI Respiratory Respiratory: Reports system reviewed and no additional complaints, except as documented and Reports as per HPI Gastrointestinal Gastrointestingal: Reports system reviewed and no additional complaints, except as documented and as per HPI Neurologic Neurologic: Reports headache(s) Physical Exam General General appearance: alert and in no apparent distress ENT ENT exam: Present mucous membranes moist Expanded ENT Exam TM/Canal exam: Left TM: erythema and bulging Nose exam: Present sinus tenderness Respiratory Respiratory exam: Present normal lung sounds bilaterally; Absent respiratory distress or wheezes Cardiovascular Cardiovascular exam: Present regular rate, normal rhythm and normal heart sounds Neurological Exam Neurological exam: Present alert, oriented X3 and normal gait Medical Decision Making Medical Records Screening: Per USPSTF and CDC recommendations, given the prevalence of disease in our region, it is our hospital?s policy to screen for HIV and viral Hepatitis for all patients aged 18 and over and those with ongoing risk factors. Frank Inquiry Pt receiving controlled substance: No Frank was queried for this patient: No Vital Signs: 10/23/24 08:20 Temperature 98.1 F Temperature Source Oral Pulse Rate [Left Brachial] 71 Respiratory Rate 19 Blood Pressure [Left Arm] 131/76 Blood Pressure Mean [Left Arm] 94 Blood Pressure Source [Left Arm] Automatic Cuff Blood Pressure Position [Left Arm] Sitting 02 Sat by Pulse Oximetry 98 Oxygen Delivery Method Room Air
[2024-10-23 08:47] VITALS: BP 131/76; PULSE 71; RESP 19; TEMP 36.7; O2SAT 98
== END 2024-10-23 08:50 | disposition home or self-care (01) ==
PROVIDERS: Emergency Provider Nurse Practitioner; PCP Internal Medicine
DX: J32.9 Chronic sinusitis, unspecified (principal)
CPT/HCPCS: 99212; G0381

== ENCOUNTER 2025-03-23 09:13 | Outpatient (CLI) | payer BC, SELFPAY ==
[2025-03-23 15:11] LABS: Hematocrit 42.6 % (42.0-52.0); Hemoglobin 13.9 g/dL (14.1-18.0); Immature Granulocytes % 0.8 %; Mean Corpuscular HGB Conc 32.6 g/dL (31.8-35.4); Mean Corpuscular Hemoglobin 30.5 pg (27.0-31.2); Mean Corpuscular Volume 93.4 fl (80-94); Nucleated Red Blood Cells % 0 %; Platelet Count 522 K/mm3 (142-424); Red Blood Count 4.56 M/mm3 (4.60-6.20); Red Cell Distribution Width-SD 43.7 fL; White Blood Count 7.8 K/mm3 (4.8-10.8)
[2025-03-23 15:46] LABS: Alanine Aminotransferase 130 U/L (12-78); Albumin Level 4.4 g/dl (3.5-5.0); Albumin/Globulin Ratio 1.8 (1.1-1.8); Alkaline Phosphatase 86 U/L (38-126); Anion Gap 13.2 mEq/L (5-15); Aspartate Amino Transferase 67 U/L (17-59); Bilirubin,Total 0.5 mg/dl (0.2-1.3); Blood Urea Nitrogen 16 mg/dl (9-20); Calcium 9.5 mg/dl (8.4-10.2); Carbon Dioxide 33 mmol/L (22.0-30.0); Chloride 97 mmol/L (98-107); Cholesterol 182 mg/dl (140-200); Creatinine,Serum 0.90 mg/dl (0.66-1.25); Estimated Glomerular Filt Rate 94 ml/min (>60); GFR (African American) 114 ML/MIN (>60); Globulin 2.5 g/dL (1.3-3.2); Glucose 76 mg/dl (74-100); HDL Cholesterol 41 mg/dl (40-60); Potassium 5.2 mmoL/L (3.5-5.1); Sodium 138 mmol/L (136-145); Total Protein,Serum 6.9 g/dl (6.3-8.2); Triglycerides 357 mg/dl (30-150)
[2025-03-23 16:30] LABS: Hepatitis C Ab Qual. W/ RFX NEGATIVE (Negative)
== END 2025-03-23 23:59 | disposition home or self-care (01) ==
LOC: LAB.DROPOF 03-27 11:07
PROVIDERS: PCP Internal Medicine; Visit Provider Internal Medicine
DX: Z11.4 Encounter for screening for human immunodeficiency virus [HIV] (principal); Z11.59 Encounter for screening for other viral diseases; I10 Essential (primary) hypertension; E78.2 Mixed hyperlipidemia; D75.839 Thrombocytosis, unspecified; D64.9 Anemia, unspecified
CPT/HCPCS: 80053; 80061; 85025; 86803; 87389